=== PATIENT | male | born 1960 | race Caucasian/White ===

== ENCOUNTER → 2017-07-31 | Outpatient (CLI) | payer OTHER ==
[~2017-07-31] MED LIST: ASPIR 8181 M1 PO; CRESTOR40 MG PO; METFORMIN HCL500 MG PO; PRANDIN2 MG PO
--- NOTE | ~2017-07-31 | EKG ---
[place] [address] [address] [facility] [place] [address] ELECTROCARDIOGRAM REPORT Name: JERMAINE CHAUHAN Room #: REG CLI [facility].#: [id number] Admission: 07/31/17 Attend Phys: Tram Rodriguez MD Discharge: Date of : 64 Report #: [id number] THIS REPORT FOR: //name// [facility] Test Date: 2017-07-31 Test Time: 15:04:10 Pat Name: JERMAINE CHAUHAN Department: Room: Gender: Supervisor [employer] Department: KARINE : 1960 Requested By: Tram Rodriguez Order Number: [id number] MD: Sumit Ellison Measurements Intervals [place] Rate: 67 P: 1 GA: 184 QRS: 28 QRSD: 90 T: 28 QT: 405 QTc: 428 Interpretive Statements Sinus rhythm Anterior infarct, old Baseline wander in lead(s) V1,V4 No previous ECG available for comparison Electronically Signed On 07-31-2017 17:35:59 [employer]SULT[employer] by Sumit Ellison [email or web address] <ELECTRONICALLY SIGNED> By: Sumit Ellison MD, [facility] 07/31/17 1735 1504 1504 Sumit Ellison MD, FACC /EPI
== END | disposition home or self-care (01) ==
LOC: LITH 14:00
DX: N20.1 Calculus of ureter (principal); N28.9 Disorder of kidney and ureter, unspecified; E78.00 Pure hypercholesterolemia, unspecified; E11.9 Type 2 diabetes mellitus without complications; Z98.890 Other specified postprocedural states; Z79.899 Other long term (current) drug therapy; Z79.82 Long term (current) use of aspirin

== ENCOUNTER → 2017-10-16 | Outpatient (CLI) | payer OTHER | END | disposition home or self-care (01) | LOC: LITH 14:35 | DX: N20.1 Calculus of ureter (principal); E78.00 Pure hypercholesterolemia, unspecified; E11.9 Type 2 diabetes mellitus without complications; E07.9 Disorder of thyroid, unspecified; Z98.890 Other specified postprocedural states; Z79.82 Long term (current) use of aspirin; Z79.899 Other long term (current) drug therapy ==